=== PATIENT | female | born 1975 | race Caucasian/White ===

== ENCOUNTER 2017-04-05 21:41 | Emergency (ER) | payer BC, OTHER ==
--- NOTE | 2017-04-05 22:05 | EDM.PDOC ---
ED HPI GENERAL MEDICAL PROBLEM - General Chief Complaint: ENT Problem Stated Complaint: PT HAS SORE THROAT Time Seen by Provider: 04/05/17 21:57 - History of Present Illness INITIAL COMMENTS - FREE TEXT/NARRATIVE: HISTORY AND PHYSICAL: History of present illness: 41-year-old white female sensory concern of sore throat she denies fever chills nausea vomiting or other complaints Review of systems: As per history of present illness and below otherwise all systems reviewed and negative. Past medical history: As per history of present illness and as reviewed below otherwise noncontributory. Surgical history: As per history of present illness and as reviewed below otherwise noncontributory. Social history: No reported history of drug or alcohol abuse. Family history: As per history of present illness and as reviewed below otherwise noncontributory. Physical exam: HEENT: Atraumatic, normocephalic, pupils reactive, negative for conjunctival pallor or scleral icterus, mucous membranes moist, throat injected with 2+ tonsils no peritonsillar fullness uvular deviation trismus or hot potato voice neck supple, nontender, trachea midline. Lungs: Clear to auscultation, breath sounds equal bilaterally, chest nontender. Heart: S1S2, regular, negative for clicks, rubs, or JVD. Abdomen: Soft, nondistended, nontender. Negative for masses or hepatosplenomegaly. Negative for costovertebral tenderness. Pelvis: Stable nontender. Genitourinary: Deferred. Rectal: Deferred. Extremities: Atraumatic, negative for cords or calf pain. Neurovascular unremarkable. Neuro: Awake, alert, oriented. Cranial nerves II through XII unremarkable. Cerebellum unremarkable. Motor and sensory unremarkable throughout. Exam nonfocal. Diagnostics: None Therapeutics: None Impression: #1 pharyngitis Definitive disposition and diagnosis as appropriate pending reevaluation and review of above. 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: Other OB/BYN History: cervial cotarization Musculoskeletal History: Reports: None Neurological History: Reports: None Psychiatric History: Reports: None Endocrine/Metabolic History: Reports: None Hematologic History: Reports: None Immunologic History: Reports: None Oncologic (Cancer) History: Reports: None Dermatologic History: Reports: None - Infectious Disease History Infectious Disease History: Reports: None - Past Surgical History Head Surgeries/Procedures: Reports: None HEENT Surgical History: Reports: None GI Surgical History: Reports: Bariatric Procedure, Cholecystectomy Female Surgical History: Reports: Dilitation & Evacuation Dermatological Surgical History: Reports: None Social & Family History - Family History Family Medical History: Noncontributory - Tobacco Use Smoking Status *Q: Never Smoker Second Hand Smoke Exposure: No - Caffeine Use Caffeine Use: Reports: Soda - Recreational Drug Use Recreational Drug Use: No ED ROS GENERAL - Review of Systems Review Of Systems: ROS reveals no pertinent complaints other than HPI. ED EXAM, GENERAL - Physical Exam Exam: See Below (See dictation) Course - Vital Signs Last Recorded V/S: Last Vital Signs Temp 37.0 C 04/05/17 21:57 Pulse 120 H 04/05/17 21:57 Resp 18 04/05/17 21:57 BP 113/83 04/05/17 21:57 Pulse Ox 95 04/05/17 21:57 Departure - Departure Time of Disposition: 22:05 Disposition: Home, Self-Care 01 Condition: Good Clinical Impression: Pharyngitis - Discharge Information Referrals: PCP,None [Primary Care Provider] - Additional Instructions: The following information is given to patients seen in the emergency department who are being discharged to home. This information is to outline your options for follow-up care. We provide all patients seen in our emergency department with a follow-up referral. The need for follow-up, as well as the timing and circumstances, are variable depending upon the specifics of your emergency department visit. If you don't have a primary care physician on staff, we will provide you with a referral. We always advise you to contact your personal physician following an emergency department visit to inform them of the circumstance of the visit and for follow-up with them and/or the need for any referrals to a consulting specialist. The emergency department will also refer you to a specialist when appropriate. This referral assures that you have the opportunity for followup care with a specialist. All of these measure are taken in an effort to provide you with optimal care, which includes your followup. Under all circumstances we always encourage you to contact your private physician who remains a resource for coordinating your care. When calling for followup care, please make the office aware that this follow-up is from your recent emergency room visit. If for any reason you are refused follow-up, please contact the [facility] emergency department at and asked to speak to the emergency department charge nurse. Augmentin as prescribed push fluids Motrin/Tylenol as directed and return as needed as discussed all medical doctor as needed as discussed
[2017-04-05 22:23] VITALS: BP 115/87
== END 2017-04-05 22:25 | disposition home or self-care (01) ==
LOC: MW.ED 21:41
DX: J02.9 Acute pharyngitis, unspecified (principal); E78.00 Pure hypercholesterolemia, unspecified; Z88.5 Allergy status to narcotic agent
CPT/HCPCS: 99283

== ENCOUNTER 2018-11-20 07:39 | Day surgery (SDC) | payer OTHER ==
[~2018-11-20 07:39] MED LIST: Glycopyrrolate 0.2 MG/ML SDV ONE; Ketorolac 30 MG/ML SDV ONE; Lidocaine 2% 5 ML SDV ONE; Midazolam 1 MG/ML 2 ML SDV ONE; Neostigmine Methylsulfate 1 MG/ML 5 ML Syringe ONE; Ondansetron 4 MG/2 ML SDV ONE; Propofol 200 MG/20 ML SDV ONE; Rocuronium 100 MG/10 ML Syringe ONE; Sodium Chloride 0.9% 10 ML SDV IV PRN; Sodium Chloride 0.9% 10 ML Syringe FLUSH PRN; Sodium Chloride 0.9% 2.5 ML Syringe FLUSH PRN; Sodium Chloride 0.9% 20 ML ONE; ceFAZolin 1 GM Vial ONE; ceFAZolin 2 GM in Premix Bag 1 BAG IV ONE; fentaNYL 100 MCG/2 ML SDV ONE; fentaNYL 250 MCG/5 ML SDV ONE
[2018-11-20] MEDS: Lactated Ringers 1,000 ML IV SCH ×2 (08:00→13:24)
[2018-11-20] MEDS ORDERED: Fluorescein 5 ML Vial ONE (08:50)
[2018-11-20] MEDS ORDERED: Scopolamine 1.5 MG Transdermal Patch TRDERM PRN (08:54)
[2018-11-20] MEDS ORDERED: Scopolamine 1.5 MG Transdermal Patch ONE (08:55)
--- NOTE | 2018-11-20 08:57 | PCM.PREANE ---
Preanesthetic Assessment - Anesthesia/Transfusion/Family Hx Anesthesia History: Prior Anesthesia Without Reaction Family History of Anesthesia Reaction: No Transfusion History: Prior Transfusion Without Reaction Intubation History: Unknown - Review of Systems General: No Symptoms Pulmonary: No Symptoms Cardiovascular: No Symptoms Gastrointestinal: No Symptoms Neurological: No Symptoms Other: Reports: None - Physical Assessment NPO Status Date: 11/19/18 NPO Status Time: 23:00 Vital Signs: Last Vital Signs Temp 36.2 C 11/20/18 08:00 Pulse 72 11/20/18 08:00 Resp 18 11/20/18 08:00 BP 116/75 11/20/18 08:00 Pulse Ox 96 11/20/18 08:00 Height: 5 ft 3 in Weight: 96.615 kg ASA Class: 2 Mental Status: Alert & Oriented x3 Airway Class: Mallampati = 2 Dentition: Reports: Normal Dentition, Bridge (rt.lower (back)) Thyro-Mental Finger Breadths: 3 Mouth Opening Finger Breadths: 3 ROM/Head Extension: Full Lungs: Clear to Auscultation, Normal Respiratory Effort Cardiovascular: Regular Rate, Regular Rhythm - Lab Values: Laboratory Last Values WBC 8.44 K/uL (4.0-11.0) 11/19/18 09:11 RBC 4.69 M/uL (4.30-5.90) 11/19/18 09:11 Hgb 13.6 g/dL (12.0-16.0) 11/19/18 09:11 Hct 41.6 % (36.0-46.0) 11/19/18 09:11 MCV 88.7 fL (80.0-98.0) 11/19/18 09:11 MCH 29.0 pg (27.0-32.0) 11/19/18 09:11 MCHC 32.7 g/dL (31.0-37.0) 11/19/18 09:11 RDW Std Deviation 39.2 fl (28.0-62.0) 11/19/18 09:11 RDW Coeff of Tom 12 % (11.0-15.0) 11/19/18 09:11 Plt Count 350 K/uL (150-400) 11/19/18 09:11 MPV 10.00 fL (7.40-12.00) 11/19/18 09:11 Nucleated RBC % 0.0 /100WBC 11/19/18 09:11 Nucleated RBCs # 0 K/uL 11/19/18 09:11 HCG, Qual NEGATIVE (NEG) 11/19/18 09:11 Blood Type AB POSITIVE 11/19/18 09:11 Antibody Screen NEGATIVE 11/19/18 09:11 - Allergies Allergies/Adverse Reactions: Allergies Allergy/AdvReac Type Severity Reaction Status Date / Time hydrocodone Allergy Nausea Verified 11/14/18 09:56 - Blood Blood Available: No - Anesthesia Plan Pre-Op Medication Ordered: None - Acknowledgements Anesthesia Type Planned: General Anesthesia Pt an Appropriate Candidate for the Planned Anesthesia: Yes Alternatives and Risks of Anesthesia Discussed w Pt/Guardian: Yes Pt/Guardian Understands and Agrees with Anesthesia Plan: Yes PreAnesthesia Questionnaire HEENT History: Reports: None Cardiovascular History: Reports: High Cholesterol Respiratory History: Reports: COPD, Other (See Below) Other Respiratory History: mild COPD, seldom uses inhaler Gastrointestinal History: Reports: Other (See Below) Other Gastrointestinal History: occasional heartburn Genitourinary History: Reports: Urinary Incontinence SUTURE WINDER HAND History: Reports: Polycystic Ovaries, , Other (See Below) Other OB/BYN History: hx toxemia Musculoskeletal History: Reports: None Neurological History: Reports: Migraines Psychiatric History: Reports: Anxiety, Depression Endocrine/Metabolic History: Reports: Obesity/BMI 30+ Hematologic History: Reports: Blood Transfusion(s) Other Hematologic History: blood transfusion after vaginal delivery Immunologic History: Reports: None Oncologic (Cancer) History: Reports: None Dermatologic History: Reports: None - Infectious Disease History Infectious Disease History: Reports: Chicken Pox - Past Surgical History Head Surgeries/Procedures: Reports: None HEENT Surgical History: Reports: None Cardiovascular Surgical History: Reports: None Respiratory Surgical History: Reports: None GI Surgical History: Reports: Cholecystectomy, Other (See Below) Other GI Surgeries/Procedures: tummy tuck Female Surgical History: Reports: Cervical Cryotherapy, Dilitation & Evacuation, Endometrial Ablation Endocrine Surgical History: Reports: None Neurological Surgical History: Reports: None Musculoskeletal Surgical History: Reports: None Oncologic Surgical History: Reports: None Dermatological Surgical History: Reports: Plastic Surgical Reconstruction/Repair - SUBSTANCE USE Smoking Status *Q: Former Smoker Tobacco Use Within Last Twelve Months: Other (See Below) - HOME MEDS Home Medications: Home Meds Albuterol Sulfate [Albuterol Sulfate Hfa] 1 - 2 puff INH ASDIRECTED PRN [History] Ibuprofen [Advil] 2 tab PO ASDIRECTED PRN 11/18/18 [History] - CURRENT (IN HOUSE) MEDS Current Meds: Current Medications Lactated Ringer's (Ringers, Lactated) 1,000 mls @ 125 mls/hr IV ASDIRECTED ABDIRASHID Last Admin: 11/20/18 08:00 Dose: 125 mls/hr Sodium Chloride (Saline Flush) 10 ml FLUSH ASDIRECTED PRN PRN Reason: Keep Vein Open Sodium Chloride (Saline Flush) 2.5 ml FLUSH ASDIRECTED PRN PRN Reason: Keep Vein Open Sodium Chloride (Normal Saline) 10 ml IV ASDIRECTED PRN PRN Reason: IV Use Discontinued Medications Cefazolin Sodium (Ancef) Confirm Administered Dose 2 gm .ROUTE .STK-MED ONE Stop: 11/20/18 06:58 Fentanyl (Sublimaze) Confirm Administered Dose 100 mcg .ROUTE .STK-MED ONE Stop: 11/20/18 06:59 Fentanyl (Sublimaze) Confirm Administered Dose 250 mcg .ROUTE .STK-MED ONE Stop: 11/20/18 06:59 Fluorescein Sodium (Ak-Fluor) Confirm Administered Dose 5 ml .ROUTE .STK-MED ONE Stop: 11/20/18 08:51 Glycopyrrolate (Robinul) Confirm Administered Dose 0.8 mg .ROUTE .STK-MED ONE Stop: 11/20/18 06:57 Cefazolin Sodium/Dextrose 2 gm (/ Premix) 50 mls @ 100 mls/hr IV ONETIME ONE Stop: 11/19/18 09:17 Sodium Chloride (Normal Saline) Confirm Administered Dose 20 mls @ as directed .ROUTE .STK-MED ONE Stop: 11/20/18 06:58 Ketorolac Tromethamine (Toradol) Confirm Administered Dose 30 mg .ROUTE .STK- MED ONE Stop: 11/20/18 06:57 Lidocaine (Xylocaine-Mpf 2%) Confirm Administered Dose 5 ml .ROUTE .STK-MED ONE Stop: 11/20/18 06:57 Midazolam HCl (Versed 1 Mg/Ml) Confirm Administered Dose 2 mg .ROUTE .STK-MED ONE Stop: 11/20/18 06:59 Neostigmine Methylsulfate (Neostigmine) Confirm Administered Dose 5 mg .ROUTE .STK-MED ONE Stop: 11/20/18 06:57 Ondansetron HCl (Zofran) Confirm Administered Dose 4 mg .ROUTE .STK-MED ONE Stop: 11/20/18 06:57 Propofol (Diprivan 20 Ml) Confirm Administered Dose 200 mg .ROUTE .STK-MED ONE Stop: 11/20/18 06:59 Rocuronium [place] (Zemuron) Confirm Administered Dose 100 mg .ROUTE .STK-MED ONE Stop: 11/20/18 06:57
[2018-11-20] MEDS ORDERED: fentaNYL 250 MCG/5 ML SDV ONE ×2 (10:00→10:25)
[2018-11-20] MEDS ORDERED: Ketorolac 30 MG/ML SDV IVPUSH PRN (11:11)
[2018-11-20] MEDS ORDERED: Morphine 4 MG/ML Syringe IVPUSH PRN (11:11)
[2018-11-20] MEDS ORDERED: Acetaminophen/oxyCODONE 325-5 MG Tab PO PRN (11:11)
[2018-11-20] MEDS ORDERED: Ondansetron 4 MG/2 ML SDV IVPUSH PRN (11:11)
[2018-11-20] MEDS ORDERED: Ketorolac 30 MG/ML SDV IVPUSH ONE (11:11)
[2018-11-20] MEDS ORDERED: Promethazine 25 MG/ML SDV IM PRN (11:11)
--- NOTE | 2018-11-20 11:16 | PCM.OPNOTE ---
- General Post-Op/Procedure Note Date of Surgery/Procedure: 11/20/18 Operative Procedure(s): TVH,TVT,Cystoscopy. Pre Op Diagnosis: bleeding RADHA Post-Op Diagnosis: Same Anesthesia Technique: General ET Tube Primary Surgeon: Sorin Park EBL in mLs: 150 Complications: None Condition: Good
[2018-11-20] MEDS ORDERED: Acetaminophen 1,000 MG in Premix Bag 1 BAG IV PRN (11:25)
[2018-11-20] MEDS ORDERED: fentaNYL 100 MCG/2 ML SDV ONE (11:26)
[2018-11-20] MEDS: fentaNYL 100 MCG/2 ML SDV IVPUSH PRN ×3 (11:32→12:23)
[2018-11-20] MEDS ORDERED: Midazolam 1 MG/ML 2 ML SDV ONE (11:38)
[2018-11-20] MEDS: Midazolam 1 MG/ML 2 ML SDV IVPUSH ONE ×2 (11:45→11:55)
--- NOTE | 2018-11-20 12:35 | OR ---
SURGEON: Sorin Park MD DATE OF PROCEDURE: 11/20/2018 PREOPERATIVE DIAGNOSES: 1. Menometrorrhagia. 2. Pelvic pain. 3. Stress urinary incontinence. POSTOPERATIVE DIAGNOSES: 1. Menometrorrhagia. 2. Pelvic pain. 3. Stress urinary incontinence. OPERATION PERFORMED: Total vaginal hysterectomy, bilateral salpingectomy, left oophorectomy, TVT, and cystoscopy. PRIMARY SURGEON: Sorin Park MD. MACHINE MAINTENANCE REPAIRER: OR tech. ANESTHESIA: General endotracheal intubation. ESTIMATED BLOOD LOSS: 150 mL. COMPLICATIONS: None. INDICATION FOR SURGERY: This patient had status post ablation. She has continuous menometrorrhagia and she has stress urinary incontinence. PROCEDURE IN DETAIL: The patient was brought to the OR, properly identified, and after adequate level of anesthesia, the patient was placed in lithotomy position, prepped and draped in sterile fashion as usual. A short weighted speculum was placed in the vagina and then straight catheter was used to empty the bladder. Single-tooth tenaculum applied to the cervix. Circular incision in the vaginal mucosa around the cervix was done and the posterior cul-de-sac was entered posteriorly with the Reyez scissors. The peritoneum and the vagina tagged with 2-0 Vicryl and held for further identification. The short weighted speculum was placed with extended long weighted speculum. The uterosacral ligament was identified from both sides, clamped with a curved Zeppelin, transected and suture ligated with 2- 0 Vicryl pop-off from both sides, and held for further identification. The same thing was done with the cardinal ligament and the cervical vesicle space entered anteriorly. The broad ligament was clamped from both sides with a curved Zeppelin, transected, and suture ligated with 2-0 Vicryl pop-off. The uterine vessel suture ligated at this step, then multiple bites on. Then, the round ligament on both sides was done in the same way. Then, the uterus was delivered posteriorly. The superior pedicle was clamped. The left tube and ovary are adherent tightly to the uterus, so that is necessitating removal of the left ovary. The right ovary essentially is normal, was left alone, and the right tube is included with the specimen. After time, the superior pedicle first with Endoloop and then a free tie on both sides. Inspection of the operative field shows no oozing, no bleeding. Then, the vaginal cuff was closed with 2-0 Vicryl interrupted [id number] suture. The 2 anchor sutures incorporated the uterosacral and cardinal ligament for further vaginal support. After closing the vagina, attention was paid to the anterior vaginal wall and the area beneath the urethra infiltrated with copious amount of normal saline incised at the midline with electrocautery, and dissected laterally creating a tunnel for the Solyx TVT. The Solyx TVT was placed in place with due amount of tension to elevate the urethrovesical angle and then the vaginal cuff. Anterior vagina closed with 2-0 Vicryl continuous interlocking suture for hemostasis. While we were doing that, we asked Anesthesia to give the patient fluorescein and after finishing with closing the incision for the TVT, cystoscopy performed. The bladder was intact. Both ureteric orifices were seen with the dye coming from both of them. Thus, the patency of both ureters verified. Satisfied with these findings, the instrument and sponge count were correct. The patient tolerated the procedure well, went to recovery room in stable general condition. LIZET TELLEZ /[id number]
--- NOTE | 2018-11-20 12:56 | PCM.POSTAN ---
POST ANESTHESIA ASSESSMENT - MENTAL STATUS Mental Status: Alert, Oriented - VITAL SIGNS Vital Signs: Last Vital Signs Temp 98.0 C H 11/20/18 11:17 Pulse 52 L 11/20/18 12:30 Resp 12 11/20/18 12:30 BP 125/53 L 11/20/18 12:30 Pulse Ox 97 11/20/18 12:30 - RESPIRATORY Respiratory Status: Respiratory Rate WNL, Airway Patent, O2 Saturation Stable - CARDIOVASCULAR CV Status: Pulse Rate WNL, Blood Pressure Stable - GASTROINTESTINAL GI Status: No Symptoms - PAIN Pain Score: 0 - POST OP HYDRATION Hydration Status: Adequate & Stable - OBSERVATIONS Free Text/Narrative:: no anesthesia problems
[2018-11-20] MEDS: Acetaminophen/oxyCODONE 325-5 MG Tab PO PRN ×2 (16:11→21:15)
[2018-11-21] MEDS: Acetaminophen/oxyCODONE 325-5 MG Tab PO PRN ×2 (03:30→07:45)
[2018-11-21 07:47] LABS: BLOOD UREA NITROGEN,BUN 10 mg/dL (7.0-18.0); CARBON DIOXIDE,CO2 29.7 mmol/L (21.0-32.0); CHLORIDE,CL 103 mmol/L (98-107); GLUCOSE RANDOM 100 mg/dL (74-106); POTASSIUM,K 4.3 mmol/L (3.5-5.1); SODIUM,NA 138 mmol/L (136-145)
[2018-11-21 08:03] VITALS: BP 80/52
--- NOTE | 2018-11-21 09:37 | PCM.SURGPN ---
- General Info Date of Service: 11/21/18 POD#: 1 Functional Status: Reports: Pain Controlled - Review of Systems General: Reports: No Symptoms HEENT: Reports: No Symptoms Pulmonary: Reports: No Symptoms Cardiovascular: Reports: No Symptoms Gastrointestinal: Reports: No Symptoms Genitourinary: Reports: No Symptoms Musculoskeletal: Reports: No Symptoms Skin: Reports: No Symptoms Neurological: Reports: No Symptoms Psychiatric: Reports: No Symptoms - Patient Data Vitals - Most Recent: Last Vital Signs Temp 36.9 C 11/21/18 08:02 Pulse 65 11/21/18 08:02 Resp 20 11/21/18 08:02 BP 80/52 L 11/21/18 08:02 Pulse Ox 95 11/21/18 08:02 Weight - Most Recent: 96.615 kg I&O - Last 24 Hours: Intake & Output 11/20/18 11/21/18 11/21/18 22:59 06:59 14:59 Intake Total 1458 700 Output Total 0 800 Balance 1458 -100 Lab Results Last 24 Hrs: Laboratory Results - last 24 hr 11/21/18 11/21/18 Range/Units 06:34 06:34 WBC 8.97 (4.0-11.0) K/uL RBC 4.01 L (4.30-5.90) M/uL Hgb 11.5 L (12.0-16.0) g/dL Hct 36.2 (36.0-46.0) % MCV 90.3 (80.0-98.0) fL MCH 28.7 (27.0-32.0) pg MCHC 31.8 (31.0-37.0) g/dL RDW Std Deviation 41.1 (28.0-62.0) fl RDW Coeff of Tom 12 (11.0-15.0) % Plt Count 291 (150-400) K/uL MPV 9.80 (7.40-12.00) fL Neut % (Auto) 52.6 (48.0-80.0) % Lymph % (Auto) 35.1 (16.0-40.0) % [place] % (Auto) 9.4 (0.0-15.0) % Eos % (Auto) 2.2 (0.0-7.0) % Baso % (Auto) 0.7 (0.0-1.5) % Neut # (Auto) 4.7 (1.4-5.7) K/uL Lymph # (Auto) 3.2 H (0.6-2.4) K/uL [place] # (Auto) 0.8 (0.0-0.8) K/uL Eos # (Auto) 0.2 (0.0-0.7) K/uL Baso # (Auto) 0.1 (0.0-0.1) K/uL Nucleated RBC % 0.0 /100WBC Nucleated RBCs # 0 K/uL Sodium 138 (136-145) mmol/L Potassium 4.3 (3.5-5.1) mmol/L Chloride 103 (98-107) mmol/L Carbon Dioxide 29.7 (21.0-32.0) mmol/L BUN 10 (7.0-18.0) mg/dL Creatinine 0.8 (0.6-1.0) mg/dL Est Cr Clr Drug Dosing 75.01 mL/min Estimated GFR (MDRD) > 60.0 ml/min Glucose 100 (74-106) mg/dL Calcium 8.9 (8.5-10.1) mg/dL Med Orders - Current: Current Medications Lactated Ringer's (Ringers, Lactated) 1,000 mls @ 125 mls/hr IV ASDIRECTED [facility] Last Admin: 11/20/18 13:24 Dose: 125 mls/hr Ketorolac Tromethamine (Toradol) 30 mg IVPUSH Q6H PRN PRN Reason: Pain (severe 7-10) Stop: 11/25/18 11:12 Morphine Sulfate (Morphine) 4 mg IVPUSH Q2H PRN PRN Reason: Pain (severe 7-10) Last Admin: 11/20/18 13:22 Dose: 4 mg Ondansetron HCl (Zofran) 4 mg IVPUSH Q6H PRN PRN Reason: Nausea/Vomiting Oxycodone/Acetaminophen (Percocet 325-5 Mg) 1 tab PO Q4H PRN PRN Reason: Pain (moderate 4-6) Oxycodone/Acetaminophen (Percocet 325-5 Mg) 2 tab PO Q4H PRN PRN Reason: Pain (moderate 4-6) Last Admin: 11/21/18 07:45 Dose: 2 tab Promethazine HCl (Phenergan) 25 mg IM Q6H PRN PRN Reason: Nausea/Vomiting Scopolamine (Transderm-Scop) 1.5 mg TRDERM Q72H PRN PRN Reason: Nausea Last Admin: 11/20/18 08:57 Dose: 1.5 mg Sodium Chloride (Saline Flush) 10 ml FLUSH ASDIRECTED PRN PRN Reason: Keep Vein Open Sodium Chloride (Saline Flush) 2.5 ml FLUSH ASDIRECTED PRN PRN Reason: Keep Vein Open Sodium Chloride (Normal Saline) 10 ml IV ASDIRECTED PRN PRN Reason: IV Use Discontinued Medications Cefazolin Sodium (Ancef) Confirm Administered Dose 2 gm .ROUTE .STK-MED ONE Stop: 11/20/18 06:58 Fentanyl (Sublimaze) Confirm Administered Dose 100 mcg .ROUTE .STK-MED ONE Stop: 11/20/18 06:59 Fentanyl (Sublimaze) Confirm Administered Dose 250 mcg .ROUTE .STK-MED ONE Stop: 11/20/18 06:59 Fentanyl (Sublimaze) Confirm Administered Dose 250 mcg .ROUTE .STK-MED ONE Stop: 11/20/18 10:01 Fentanyl (Sublimaze) Confirm Administered Dose 250 mcg .ROUTE .STK-MED ONE Stop: 11/20/18 10:26 Fentanyl (Sublimaze) 50 mcg IVPUSH Q5M PRN PRN Reason: Pain Last Admin: 11/20/18 12:23 Dose: 50 mcg Fentanyl (Sublimaze) Confirm Administered Dose 100 mcg .ROUTE .STK-MED ONE Stop: 11/20/18 11:27 Last Admin: 11/20/18 11:38 Dose: 50 mcg Fluorescein Sodium (Ak-Fluor) Confirm Administered Dose 5 ml .ROUTE .STK-MED ONE Stop: 11/20/18 08:51 Glycopyrrolate (Robinul) Confirm Administered Dose 0.8 mg .ROUTE .STK-MED ONE Stop: 11/20/18 06:57 Cefazolin Sodium/Dextrose 2 gm (/ Premix) 50 mls @ 100 mls/hr IV ONETIME ONE Stop: 11/19/18 09:17 Last Admin: 11/20/18 13:07 Dose: Not Given Sodium Chloride (Normal Saline) Confirm Administered Dose 20 mls @ as directed .ROUTE .STK-MED ONE Stop: 11/20/18 06:58 Acetaminophen 1,000 mg/ Premix 100 mls @ 400 mls/hr IV Q6H PRN PRN Reason: Pain Last Admin: 11/20/18 11:31 Dose: 400 mls/hr Acetaminophen (Ofirmev) Confirm Administered Dose 100 mls @ as directed IV .STK- MED ONE Stop: 11/20/18 11:25 Ketorolac Tromethamine (Toradol) Confirm Administered Dose 30 mg .ROUTE .STK- MED ONE Stop: 11/20/18 06:57 Ketorolac Tromethamine (Toradol) 30 mg IVPUSH ONETIME ONE Stop: 11/20/18 11:12 Last Admin: 11/20/18 13:11 Dose: Not Given Lidocaine (Xylocaine-Mpf 2%) Confirm Administered Dose 5 ml .ROUTE .STK-MED ONE Stop: 11/20/18 06:57 Midazolam HCl (Versed 1 Mg/Ml) Confirm Administered Dose 2 mg .ROUTE .ST-MED ONE Stop: 11/20/18 06:59 Midazolam HCl (Versed 1 Mg/Ml) 2 mg IVPUSH ONETIME ONE Stop: 11/20/18 11:39 Last Admin: 11/20/18 11:55 Dose: 1 mg Midazolam HCl (Versed 1 Mg/Ml) Confirm Administered Dose 2 mg .ROUTE .STK-MED ONE Stop: 11/20/18 11:39 Last Admin: 11/20/18 13:07 Dose: Not Given Neostigmine Methylsulfate (Neostigmine) Confirm Administered Dose 5 mg .ROUTE .STK-MED ONE Stop: 11/20/18 06:57 Ondansetron HCl (Zofran) Confirm Administered Dose 4 mg .ROUTE .STK-MED ONE Stop: 11/20/18 06:57 Propofol (Diprivan 20 Ml) Confirm Administered Dose 200 mg .ROUTE .STK-MED ONE Stop: 11/20/18 06:59 Rocuronium [place] (Zemuron) Confirm Administered Dose 100 mg .ROUTE .STK-MED ONE Stop: 11/20/18 06:57 Scopolamine (Transderm-Scop) Confirm Administered Dose 1.5 mg .ROUTE .STK-MED ONE Stop: 11/20/18 08:56 Last Admin: 11/20/18 13:07 Dose: Not Given - Exam Wound/Incisions: Healing Well General: Alert, Oriented HEENT: Pupils Equal Neck: Supple Lungs: Clear to Auscultation, Normal Respiratory Effort Cardiovascular: Regular Rate, Regular Rhythm GI/Abdominal Exam: Normal Bowel Sounds, Soft, Non-Tender, No Organomegaly, No Distention, No Abnormal Bruit, No Mass, Pelvis Stable Extremities: Normal Inspection, Normal Range of Motion, Non-Tender, No Pedal Edema, Normal Capillary Refill Skin: Warm, Dry, Intact Neurological: No New Focal Deficit Psy/Mental Status: Alert, Normal Affect, Normal Mood - Problem List Review Problem List Initiated/Reviewed/Updated: Yes - My Orders Last 24 Hours: Active Orders 24 hr Category Date Time Status Patient Status [ADT] Routine ADT 11/20/18 11:12 Active Antiembolic Devices [RC] PER UNIT ROUTINE Care 11/20/18 11:12 Active Notify Provider Vital Signs [RC] ASDIRECTED Care 11/20/18 11:12 Active Oxygen Therapy [RC] ASDIRECTED Care 11/20/18 11:12 Active RT Incentive Spirometry [RC] Q2HWA Care 11/20/18 11:12 Active Up With Assistance [RC] PER UNIT ROUTINE Care 11/20/18 11:12 Active Up ad [place] [RC] PER UNIT ROUTINE Care 11/20/18 11:12 Active Regular Diet [DIET] Diet 11/20/18 Dinner Active Acetaminophen/oxyCODONE [Percocet 325-5 MG] Med 11/20/18 11:11 Active 1 tab PO Q4H PRN Acetaminophen/oxyCODONE [Percocet 325-5 MG] Med 11/20/18 11:11 Active 2 tab PO Q4H PRN Ketorolac [Toradol] Med 11/20/18 11:11 Active 30 mg IVPUSH Q6H PRN Morphine Med 11/20/18 11:11 Active 4 mg IVPUSH Q2H PRN Ondansetron [Zofran] Med 11/20/18 11:11 Active 4 mg IVPUSH Q6H PRN Promethazine [Phenergan] Med 11/20/18 11:11 Active 25 mg IM Q6H PRN Scopolamine [Transderm-Scop] Med 11/20/18 08:54 Active 1.5 mg TRDERM Q72H PRN Peripheral IV Discontinue [OM.PC] Routine Oth 11/20/18 11:12 Ordered Sequential Compression Device [OM.PC] Per Unit Routine Oth 11/20/18 11:12 Ordered Resuscitation Status Routine Resus Stat 11/20/18 11:11 Ordered Medication Orders Lactated Ringer's (Ringers, Lactated) 1,000 mls @ 125 mls/hr IV ASDIRECTED ABDIRASHID Last Admin: 11/20/18 13:24 Dose: 125 mls/hr Infusion: 11/20/18 13:24 Dose: 125 mls/hr Admin: 11/20/18 08:00 Dose: 125 mls/hr Ketorolac Tromethamine (Toradol) 30 mg IVPUSH Q6H PRN PRN Reason: Pain (severe 7-10) Stop: 11/25/18 11:12 Morphine Sulfate (Morphine) 4 mg IVPUSH Q2H PRN PRN Reason: Pain (severe 7-10) Last Admin: 11/20/18 13:22 Dose: 4 mg Ondansetron HCl (Zofran) 4 mg IVPUSH Q6H PRN PRN Reason: Nausea/Vomiting Oxycodone/Acetaminophen (Percocet 325-5 Mg) 1 tab PO Q4H PRN PRN Reason: Pain (moderate 4-6) Oxycodone/Acetaminophen (Percocet 325-5 Mg) 2 tab PO Q4H PRN PRN Reason: Pain (moderate 4-6) Last Admin: 11/21/18 07:45 Dose: 2 tab Admin: 11/21/18 03:30 Dose: 2 tab Admin: 11/20/18 21:15 Dose: 2 tab Admin: 11/20/18 16:11 Dose: 2 tab Promethazine HCl (Phenergan) 25 mg IM Q6H PRN PRN Reason: Nausea/Vomiting Scopolamine (Transderm-Scop) 1.5 mg TRDERM Q72H PRN PRN Reason: Nausea Last Admin: 11/20/18 08:57 Dose: 1.5 mg Sodium Chloride (Saline Flush) 10 ml FLUSH ASDIRECTED PRN PRN Reason: Keep Vein Open Sodium Chloride (Saline Flush) 2.5 ml FLUSH ASDIRECTED PRN PRN Reason: Keep Vein Open Sodium Chloride (Normal Saline) 10 ml IV ASDIRECTED PRN PRN Reason: IV Use - Assessment Assessment (Free Text/Narrative):: Status post vaginal hysterectomy DVT postoperative day #1 patient is doing well. - Plan Plan (Free Text/Narrative):: The postvasectomy instruction is given to the patient the patient she would be discharged today a prescription for Narco 5 the every 4 hours when necessary for pain is given to the patient and she have an appointment to come to the office in one week
--- NOTE | 2018-11-21 10:54 | PCM48HPAN ---
Post Anesthesia Note - EVALUATION WITHIN 48HRS OF ANESTHETIC Vital Signs in Normal Range: Yes Patient Participated in Evaluation: Yes Respiratory Function Stable: Yes Airway Patent: Yes Cardiovascular Function Stable: Yes Hydration Status Stable: Yes Pain Control Satisfactory: Yes Nausea and Vomiting Control Satisfactory: Yes Mental Status Recovered: Yes Vital Signs: Last Vital Signs Temp 36.9 C 11/21/18 08:02 Pulse 65 11/21/18 08:02 Resp 20 11/21/18 08:02 BP 80/52 L 11/21/18 08:02 Pulse Ox 95 11/21/18 08:02 - COMMENTS/OBSERVATIONS Free Text/Narrative:: no anesthesia problems
== END 2018-11-21 11:00 | disposition home or self-care (01) ==
LOC: MW.SDS 07:39 → MW.MS 12:58 → MW.SDS 11-21 11:00
PROVIDERS: ATTEND Obstetrics & Gynecology
DX: N80.0 Endometriosis of uterus (principal); N39.3 Stress incontinence (female) (male); E78.00 Pure hypercholesterolemia, unspecified; E28.2 Polycystic ovarian syndrome; E66.9 Obesity, unspecified; J43.9 Emphysema, unspecified; F41.9 Anxiety disorder, unspecified; F41.8 Other specified anxiety disorders; Z68.38 Body mass index [BMI] 38.0-38.9, adult; Z88.5 Allergy status to narcotic agent; Z87.891 Personal history of nicotine dependence
CPT/HCPCS: 36415; 57288; 58262; 80048; 84703; 85025; 85027; 86850; 86900; 86901; A9270; C1771; J0131; J0690; J1885; J2001; J2250; J2270; J2405; J2550; J2704; J3010; J3490; J7120; 88307

== ENCOUNTER 2020-05-30 15:07 | Emergency (ER) | payer OTHER, BC ==
[2020-05-30] MEDS ORDERED: Sodium Chloride 0.9% 10 ML Syringe FLUSH PRN (15:24)
[2020-05-30] MEDS ORDERED: Sodium Chloride 0.9% 2.5 ML Syringe FLUSH PRN (15:24)
--- NOTE | 2020-05-30 15:30 | EDM.PDOC ---
ED HPI GENERAL MEDICAL PROBLEM - General Chief Complaint: Chest Pain Stated Complaint: CHEST ISSUES Time Seen by Provider: 05/30/20 15:08 - History of Present Illness INITIAL COMMENTS - FREE TEXT/NARRATIVE: History of present illness: Last night before the patient went to sleep she felt like her heart stopped for 5 seconds. She could not get her breath at all. She was frozen and stiff. Immediately after that she had a fast palpitation. Discomfort in her chest off and on since. No unusual diaphoresis although she sweats quite a bit. Since this happened she is short of breath and cannot tolerate walking up steps. Dyspnea on exertion and her pressure in her chest becomes worse with exertion. She has had occasional episodes of feeling like her heart stopped briefly and palpitations in the past. She is a non-smoker without being treated for diabetes blood pressure or cholesterol. Patient has a family history of heart disease but no history of DVT or thromboembolism. She has no recent immobilization and no swelling in her legs. [] Review of systems: As per history of present illness and below otherwise all systems reviewed and negative. Past medical history: As per history of present illness and as reviewed below otherwise noncontributory. Surgical history: As per history of present illness and as reviewed below otherwise noncontributory. Social history: No reported history of drug or alcohol abuse. Family history: As per history of present illness and as reviewed below otherwise noncontributory. Physical exam: Constitutional - well developed, well-nourished and in no acute distress HEENT - normocephalic, no evidence of trauma - external nose and mouth normal - no mass in neck and no JVD - mucosae moist EYES - full EOM, PERRL, no icterus - no evidence of inflammation, injection, or drainage Respiratory - no respiratory distress, equal bilateral expansion, lungs clear to auscultation and no abnormal lung sounds Cardiovascular - Regular Rhythm with S1 and S2 appreciated and no murmur, gallop or rub. GI - abdomen soft without distension or organomegaly - normal bowel sounds - no guard or rebound Musculoskeletal no gross deformity of long bones or joints - no tenderness, sw elling or edema Neurologic - Alert and oriented times four - CN II-XII grossly intact - motor sensory and coordination symmetrically normal Psychiatric - appropriate mood and affect with normal thought content Hematologic - No petechiae or purpura - mucosa appropriate color and sclera not pale - normal nail bed color and refill Integument - no rash or evidence of trauma - normal turgor Diagnostics: [] Therapeutics: [] Impression: [] Plan: [] Definitive disposition and diagnosis as appropriate pending reevaluation and review of above. - Related Data Allergies Allergy/AdvReac Type Severity Reaction Status Date / Time hydrocodone Allergy Nausea Verified 05/30/20 15:14 Home Meds: Home Meds . 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: Reports: Polycystic Ovaries, , Other (See Below) Other HELICOPTER ENGINEER History: hx toxemia Musculoskeletal History: Reports: None Neurological History: Reports: Migraines Psychiatric History: Reports: Anxiety, Depression Endocrine/Metabolic History: Reports: Obesity/BMI 30+ Hematologic History: Reports: Blood Transfusion(s) Other Hematologic History: blood transfusion after vaginal delivery Immunologic History: Reports: None Oncologic (Cancer) History: Reports: None Dermatologic History: Reports: None - Infectious Disease History Infectious Disease History: Reports: Chicken Pox - Past Surgical History Head Surgeries/Procedures: Reports: None HEENT Surgical History: Reports: None Cardiovascular Surgical History: Reports: None Respiratory Surgical History: Reports: None GI Surgical History: Reports: Cholecystectomy, Other (See Below) Other GI Surgeries/Procedures: tummy tuck Female Surgical History: Reports: Cervical Cryotherapy, Dilitation & Evacuation, Endometrial Ablation Endocrine Surgical History: Reports: None Neurological Surgical History: Reports: None Musculoskeletal Surgical History: Reports: None Oncologic Surgical History: Reports: None Dermatological Surgical History: Reports: Plastic Surgical Reconstruction/Repair Social & Family History - Family History Family Medical History: No Pertinent Family History - Tobacco Use Tobacco Use Status *Q: Never Tobacco User - Caffeine Use Caffeine Use: Reports: Soda - Recreational Drug Use Recreational Drug Use: No ED ROS GENERAL - Review of Systems Review Of Systems: Comprehensive ROS is negative, except as noted in HPI. ED EXAM, GENERAL - Physical Exam Exam: See Below Free Text/Narrative:: Physical exam is in the HPI #1 Interpretation EKG Interpretation Comments: EG done at 1513 hrs. sinus rhythm with a rate of 94. MD interval 152. QT interval 444. [place] -12. T wave inversion in lead V1 through 3. No prior for comparison. Impression no obvious injury but there is a possibility of anterior ischemia. Course - Vital Signs Text/Narrative:: D-dimer positive CT ordered Last Recorded V/S: Last Vital Signs Temp 35.9 C L 05/30/20 15:14 Pulse 82 05/30/20 16:07 Resp 18 05/30/20 16:07 BP 115/70 05/30/20 16:07 Pulse Ox 94 L 05/30/20 16:07 - Orders/Labs/Meds Orders: Active Orders 24 hr Category Date Time Status EKG Documentation Completion [] AM Care 05/30/20 15:24 Active Telemetry Monitoring [Cardiac Monitoring] [RC] . Care 05/30/20 15:26 Active DIRECTED Sodium Chloride 0.9% [Saline Flush] Med 05/30/20 15:24 Active 10 ml FLUSH ASDIRECTED PRN Sodium Chloride 0.9% [Saline Flush] Med 05/30/20 15:24 Active 2.5 ml FLUSH ASDIRECTED PRN Saline Lock Insert [OM.PC] Stat Oth 05/30/20 15:24 Ordered Medication Orders Sodium Chloride (Sodium Chloride 0.9% 10 Ml Syringe) 10 ml FLUSH ASDIRECTED PRN PRN Reason: Keep Vein Open Sodium Chloride (Sodium Chloride 0.9% 2.5 Ml Syringe) 2.5 ml FLUSH ASDIRECTED PRN PRN Reason: Keep Vein Open Labs: Laboratory Tests 05/30/20 05/30/20 05/30/20 Range/Units 15:13 15:13 15:13 WBC 8.70 (4.0-11.0) K/uL RBC 4.73 (4.30-5.90) M/uL Hgb 13.7 (12.0-16.0) g/dL Hct 42.1 (36.0-46.0) % MCV 89.0 (80.0-98.0) fL MCH 29.0 (27.0-32.0) pg MCHC 32.5 (31.0-37.0) g/dL RDW Std Deviation 41.4 (28.0-62.0) fl RDW Coeff of Tom 13 (11.0-15.0) % Plt Count 423 H (150-400) K/uL MPV 10.10 (7.40-12.00) fL Neut % (Auto) 43.1 L (48.0-80.0) % Lymph % (Auto) 47.6 H (16.0-40.0) % [place] % (Auto) 6.7 (0.0-15.0) % Eos % (Auto) 2.1 (0.0-7.0) % Baso % (Auto) 0.5 (0.0-1.5) % Neut # (Auto) 3.8 (1.4-5.7) K/uL Lymph # (Auto) 4.1 H (0.6-2.4) K/uL [place] # (Auto) 0.6 (0.0-0.8) K/uL Eos # (Auto) 0.2 (0.0-0.7) K/uL Baso # (Auto) 0.0 (0.0-0.1) K/uL Nucleated RBC % 0.0 /100WBC Nucleated RBCs # 0 K/uL D-Dimer, Quantitative 1.32 H (0.0-0.50) mg/L FEU Sodium 139 (136-145) mmol/L Potassium 3.9 (3.5-5.1) mmol/L Chloride 102 (98-107) mmol/L Carbon Dioxide 26.3 (21.0-32.0) mmol/L BUN 8 (7.0-18.0) mg/dL Creatinine 0.9 (0.6-1.0) mg/dL Est Cr Clr Drug Dosing 65.30 mL/min Estimated GFR (MDRD) > 60.0 ml/min Glucose 106 (74-106) mg/dL Calcium 9.4 (8.5-10.1) mg/dL Magnesium (1.8-2.4) mg/dL Total Bilirubin 0.4 (0.2-1.0) mg/dL AST 37 (15-37) IU/L ALT 49 (14-63) IU/L Alkaline Phosphatase 84 (46-116) U/L Troponin I < 0.050 (0.000-0.056) ng/mL Total Protein 7.9 (6.4-8.2) g/dL Albumin 3.2 L (3.4-5.0) g/dL Globulin 4.7 H (2.6-4.0) g/dL Albumin/Globulin Ratio 0.7 L (0.9-1.6) 05/30/20 Range/Units 15:13 WBC (4.0-11.0) K/uL RBC (4.30-5.90) M/uL Hgb (12.0-16.0) g/dL Hct (36.0-46.0) % MCV (80.0-98.0) fL MCH (27.0-32.0) pg MCHC (31.0-37.0) g/dL RDW Std Deviation (28.0-62.0) fl RDW Coeff of Otm (11.0-15.0) % Plt Count (150-400) K/uL MPV (7.40-12.00) fL Neut % (Auto) (48.0-80.0) % Lymph % (Auto) (16.0-40.0) % [place] % (Auto) (0.0-15.0) % Eos % (Auto) (0.0-7.0) % Baso % (Auto) (0.0-1.5) % Neut # (Auto) (1.4-5.7) K/uL Lymph # (Auto) (0.6-2.4) K/uL [place] # (Auto) (0.0-0.8) K/uL Eos # (Auto) (0.0-0.7) K/uL Baso # (Auto) (0.0-0.1) K/uL Nucleated RBC % /100WBC Nucleated RBCs # K/uL D-Dimer, Quantitative (0.0-0.50) mg/L FEU Sodium (136-145) mmol/L Potassium (3.5-5.1) mmol/L Chloride (98-107) mmol/L Carbon Dioxide (21.0-32.0) mmol/L BUN (7.0-18.0) mg/dL Creatinine (0.6-1.0) mg/dL Est Cr Clr Drug Dosing mL/min Estimated GFR (MDRD) ml/min Glucose (74-106) mg/dL Calcium (8.5-10.1) mg/dL Magnesium 2.0 (1.8-2.4) mg/dL Total Bilirubin (0.2-1.0) mg/dL AST (15-37) IU/L ALT (14-63) IU/L Alkaline Phosphatase (46-116) U/L Troponin I (0.000-0.056) ng/mL Total Protein (6.4-8.2) g/dL Albumin (3.4-5.0) g/dL Globulin (2.6-4.0) g/dL Albumin/Globulin Ratio (0.9-1.6) Meds: Medications Generic Name Dose Route Start Last Admin Trade Name Freq PRN Reason Stop Dose Admin Sodium Chloride 10 ml 05/30/20 15:24 Sodium Chloride 0.9% 10 Ml Syringe FLUSH ASDIRECTED PRN Keep Vein Open Sodium Chloride 2.5 ml 05/30/20 15:24 Sodium Chloride 0.9% 2.5 Ml Syringe FLUSH ASDIRECTED PRN Keep Vein Open Discontinued Medications Generic Name Dose Route Start Last Admin Trade Name Freq PRN Reason Stop Dose Admin Iopamidol 75 ml 05/30/20 16:35 05/30/20 16:37 Iopamidol 755 Mg/Ml 500 Ml Multipack Bottle IVPUSH 05/30/20 16:36 75 ml ONETIME STA Administration Departure - Departure Time of Disposition: 18:05 Disposition: Home, Self-Care 01 Condition: Good Clinical Impression: Palpitations, Atypical chest pain - Discharge Information Instructions: Nonspecific Chest Pain, Adult, [id number], Palpitations, [id number] Referrals: [facility] [employer] [Primary Care Provider] - Forms: ED Department Discharge Additional Instructions: [facility] - cardiology [address] [place] [id number] [facility] - Primary Care [address] [place] [id number] [id number] The following information is given to patients seen in the emergency department who are being discharged to home. This information is to outline your options for follow-up care. We provide all patients seen in our emergency department with a follow-up referral. The need for follow-up, as well as the timing and circumstances, are variable depending upon the specifics of your emergency department visit. If you don't have a primary care physician on staff, we will provide you with a referral. We always advise you to contact your personal physician following an emergency department visit to inform them of the circumstance of the visit and for follow-up with them and/or the need for any referrals to a consulting specialist. The emergency department will also refer you to a specialist when appropriate. This referral assures that you have the opportunity for follow-up care with a specialist. All of these measure are taken in an effort to provide you with optimal care, which includes your follow-up. Under all circumstances we always encourage you to contact your private physician who remains a resource for coordinating your care. When calling for follow-up care, please make the office aware that this follow-up is from your recent emergency room visit. If for any reason you are refused follow-up, please contact the [facility] Emergency Department at and asked to speak to the emergency department charge nurse. Sepsis Event Note (ED) - Evaluation Sepsis Screening Result: Possible Sepsis Risk - Focused Exam Vital Signs: Vital Signs Temp Pulse Resp BP Pulse Ox 05/30/20 16:07 82 18 115/70 94 L 05/30/20 15:14 35.9 C L 99 18 151/85 H 95 - My Orders Last 24 Hours: My Active Orders 05/30/20 15:24 EKG Documentation Completion [RC] AM Sodium Chloride 0.9% [Saline Flush] 10 ml FLUSH ASDIRECTED PRN Sodium Chloride 0.9% [Saline Flush] 2.5 ml FLUSH ASDIRECTED PRN Saline Lock Insert [OM.PC] Stat 05/30/20 15:26 Telemetry Monitoring [Cardiac Monitoring] [RC] . DIRECTED - Assessment/Plan Last 24 Hours: My Active Orders 05/30/20 15:24 EKG Documentation Completion [RC] AM Sodium Chloride 0.9% [Saline Flush] 10 ml FLUSH ASDIRECTED PRN Sodium Chloride 0.9% [Saline Flush] 2.5 ml FLUSH ASDIRECTED PRN Saline Lock Insert [OM.PC] Stat 05/30/20 15:26 Telemetry Monitoring [Cardiac Monitoring] [RC] . DIRECTED
[2020-05-30 15:54] LABS: BLOOD UREA NITROGEN,BUN 8 mg/dL (7.0-18.0); CARBON DIOXIDE,CO2 26.3 mmol/L (21.0-32.0); CHLORIDE,CL 102 mmol/L (98-107); GLUCOSE RANDOM 106 mg/dL (74-106); POTASSIUM,K 3.9 mmol/L (3.5-5.1); SODIUM,NA 139 mmol/L (136-145)
--- NOTE | 2020-05-30 16:21 | CR ---
Indication: Chest pain Technique: Chest 1 view Comparison: Chest x-ray 11/03/2015 Findings/Impression: Cardiovascular and mediastinum: Heart size and vasculature are normal in caliber and appearance. Lungs and pleural space: No pleural effusion or pneumothorax. Minimal right infrahilar haziness, either atelectasis or early pneumonia. Bones and soft tissues: No acute findings. Dictated by Azeem Israel MD @ May 30 2020 4:19PM Signed by Dr. Azeem Israel @ May 30 2020 4:20PM
[2020-05-30] MEDS ORDERED: Iopamidol 755 MG/ML 500 ML Multipack Bottle IVPUSH STA (16:35)
--- NOTE | 2020-05-30 17:56 | CT ---
INDICATION: Shortness of breath. Chest pain. Elevated D-dimer. COMPARISON: Chest radiograph from today. TECHNIQUE: CT examination of the chest was performed with the uneventful intravenous administration of 75 cc of Isovue 370 while 1 and 1.5 mm thick axial sections were obtained through the pulmonary arteries. Please note that all CT scans at this facility use dose modulation, iterative reconstruction, and/or weight-based dosing when appropriate to reduce radiation dose to as low as reasonably achievable. FINDINGS: : There is no sign of pulmonary embolism, with normal enhancement and branching of the pulmonary arteries. The lungs are clear with no sign of significant infiltrate or mass. There is no sign of mediastinal or hilar mass or adenopathy. The heart is normal in appearance for the patient`s age, as are the aorta and other ascending great vessels. There is no sign of supraclavicular or axillary mass or adenopathy. The visualized superior liver, spleen, pancreas, kidneys, and adrenals are normal in appearance. Clips are seen in the gall bladder fossa from cholecystectomy. The common bile duct is nondilated. The osseous structures are normal in appearance for the patient`s age. IMPRESSION: No sign of pulmonary embolism. Normal CT of the chest with contrast. Status post cholecystectomy. No sign of biliary ductal dilatation. Please note that all CT scans at this facility use dose modulation, iterative reconstruction, and/or weight-based dosing when appropriate to reduce radiation dose to as low as reasonably achievable. Dictated by Farrukh Zamorano MD @ May 30 2020 5:51PM Signed by Dr. Farrukh Zamorano @ May 30 2020 5:55PM
[2020-05-30 18:56] VITALS: BP 126/78; PULSE 67
== END 2020-05-30 18:50 | disposition home or self-care (01) ==
LOC: MW.ED 15:07
DX: R00.2 Palpitations (principal); R07.89 Other chest pain; J44.9 Chronic obstructive pulmonary disease, unspecified; E66.9 Obesity, unspecified; Z88.5 Allergy status to narcotic agent
CPT/HCPCS: 36415; 71045; 71275; 80053; 83735; 84484; 85025; 85379; 93005; 99285; Q9967; 93010; 99283

== ENCOUNTER 2020-08-18 00:15 | Emergency (ER) | payer OTHER, BC ==
[2020-08-18] MEDS ORDERED: Sodium Chloride 0.9% 10 ML Syringe FLUSH PRN (00:19)
[2020-08-18] MEDS ORDERED: Sodium Chloride 0.9% 2.5 ML Syringe FLUSH PRN (00:19)
[2020-08-18 00:54] LABS: BLOOD UREA NITROGEN,BUN 8 mg/dL (7.0-18.0); CARBON DIOXIDE,CO2 26.1 mmol/L (21.0-32.0); CHLORIDE,CL 103 mmol/L (98-107); GLUCOSE RANDOM 128 mg/dL (74-106); POTASSIUM,K 4.3 mmol/L (3.5-5.1); SODIUM,NA 137 mmol/L (136-145)
[2020-08-18] MEDS ORDERED: LORazepam 2 MG/ML SDV IVPUSH ONE (00:58)
[2020-08-18] MEDS ORDERED: Ketorolac 30 MG/ML SDV IVPUSH ONE (00:58)
--- NOTE | 2020-08-18 01:17 | EDM.PDOC ---
ED HPI GENERAL MEDICAL PROBLEM - General Chief Complaint: Chest Pain Stated Complaint: CHEST PAIN Time Seen by Provider: 08/18/20 00:19 - History of Present Illness INITIAL COMMENTS - FREE TEXT/NARRATIVE: 45-year-old female who is presenting with severe nonradiating left-sided to substernal chest pain that is pleuritic in nature and is associated with anxiety. Patient has a history of similar episodes in the past but this episode has lasted for over 30 minutes which is very unusual. Patient has no syncope or near syncope she has no abdominal pain no vomiting. Patient has been evaluated for this complaint before she is also been referred to cardiology she has been following up with Dr. Calloway in [place]. She has had an echocardiogram that she says showed "a slow closing aortic valve." No cough or fever. She has had a negative Holter monitor as well. Patient states that she [facility] she did not try any of that tonight. chest Pain Score (Numeric/FACES): 10 - Related Data Allergies Allergy/AdvReac Type Severity Reaction Status Date / Time hydrocodone Allergy Nausea Verified 08/18/20 00:22 Home Meds: Home Meds . [No Known Home Meds] 11/20/18 [History] Past Medical History HEENT History: Reports: None Cardiovascular History: Reports: High Cholesterol Respiratory History: Reports: COPD Other Respiratory History: mild COPD, seldom uses inhaler Gastrointestinal History: Reports: Gastritis Other Gastrointestinal History: occasional heartburn Genitourinary History: Reports: None, Urinary Incontinence CRATE OPENER History: Reports: Polycystic Ovaries, Other CRATE OPENER History: hx toxemia Musculoskeletal History: Reports: None Neurological History: Reports: Migraines Psychiatric History: Reports: Anxiety, Depression Endocrine/Metabolic History: Reports: Obesity/BMI 30+ Hematologic History: Reports: Blood Transfusion(s) Other Hematologic History: blood transfusion after vaginal delivery Immunologic History: Reports: None Oncologic (Cancer) History: Reports: None Dermatologic History: Reports: None - Infectious Disease History Infectious Disease History: Reports: Chicken Pox - Past Surgical History Head Surgeries/Procedures: Reports: None HEENT Surgical History: Reports: None Cardiovascular Surgical History: Reports: None Respiratory Surgical History: Reports: None GI Surgical History: Reports: Cholecystectomy, Other (See Below) Other GI Surgeries/Procedures: tummy tuck Female Surgical History: Reports: Cervical Cryotherapy, Dilitation & Evacuation, Endometrial Ablation Endocrine Surgical History: Reports: None Neurological Surgical History: Reports: None Musculoskeletal Surgical History: Reports: None Oncologic Surgical History: Reports: None Dermatological Surgical History: Reports: Plastic Surgical Reconstruction/Repair Social & Family History - Family History Family Medical History: No Pertinent Family History - Caffeine Use Caffeine Use: Reports: Soda - Recreational Drug Use Recreational Drug Use: No ED ROS GENERAL - Review of Systems Review Of Systems: See Below Free Text/Narrative/Comment: General: No fever. ENT: No sore throat. Neck: No neck stiffness. Respiratory: Per HPI Cardiac: Per HPI Gastrointestinal: No nausea, vomiting or abdominal pain. Musculoskeletal: No myalgias/arthralgias. Neurologic: No headache. ED EXAM, GENERAL - Physical Exam Exam: See Below Free Text/Narrative:: General Appearance: No acute distress, appears comfortable Skin: No rash HEENT: Normocephalic/atraumatic, sclera anicteric, mucous membranes moist Neck: Normal range of motion Chest and Lungs: Bilateral breath sounds, clear to auscultation Cardiovascular: Tachycardic rate regular rhythm intact distal perfusion Abdomen: Soft, non-tender Back: Normal Musculoskeletal: No edema or tenderness Neurologic: Awake, alert, no obvious deficits, moving all extremities Psychiatric: Appears anxious mild psychomotor agitation #1 Interpretation EKG Date: 08/18/20 Time: 00:55 EKG Interpretation Comments: Sinus rhythm rate of 90 T wave inversion V1 and V2 with T wave flattening V3 and V4 no ST elevations or depression changes are nonspecific Course - Vital Signs Last Recorded V/S: Last Vital Signs Temp 97 F 08/18/20 00:15 Pulse 96 08/18/20 00:15 Resp 18 08/18/20 00:15 BP 132/78 08/18/20 00:15 Pulse Ox 98 08/18/20 00:15 - Orders/Labs/Meds Orders: Active Orders 24 hr Category Date Time Status Sodium Chloride 0.9% [Saline Flush] Med 08/18/20 00:19 Active 10 ml FLUSH ASDIRECTED PRN Sodium Chloride 0.9% [Saline Flush] Med 08/18/20 00:19 Active 2.5 ml FLUSH ASDIRECTED PRN Saline Lock Insert [OM.PC] Stat Oth 08/18/20 00:19 Ordered Medication Orders Sodium Chloride (Sodium Chloride 0.9% 10 Ml Syringe) 10 ml FLUSH ASDIRECTED PRN PRN Reason: Keep Vein Open Sodium Chloride (Sodium Chloride 0.9% 2.5 Ml Syringe) 2.5 ml FLUSH ASDIRECTED PRN PRN Reason: Keep Vein Open Labs: Laboratory Tests 08/18/20 08/18/20 08/18/20 Range/Units 00:25 00:25 01:15 WBC 9.37 (4.0-11.0) K/uL RBC 4.64 (4.30-5.90) M/uL Hgb 13.4 (12.0-16.0) g/dL Hct 40.1 (36.0-46.0) % MCV 86.4 (80.0-98.0) fL MCH 28.9 (27.0-32.0) pg MCHC 33.4 (31.0-37.0) g/dL RDW Std Deviation 38.6 (28.0-62.0) fl RDW Coeff of Tom 12 (11.0-15.0) % Plt Count 404 H (150-400) K/uL MPV 9.90 (7.40-12.00) fL Neut % (Auto) 47.5 L (48.0-80.0) % Lymph % (Auto) 43.1 H (16.0-40.0) % [place] % (Auto) 6.9 (0.0-15.0) % Eos % (Auto) 2.2 (0.0-7.0) % Baso % (Auto) 0.3 (0.0-1.5) % Neut # (Auto) 4.4 (1.4-5.7) K/uL Lymph # (Auto) 4.0 H (0.6-2.4) K/uL [place] # (Auto) 0.7 (0.0-0.8) K/uL Eos # (Auto) 0.2 (0.0-0.7) K/uL Baso # (Auto) 0.0 (0.0-0.1) K/uL D-Dimer, Quantitative 0.41 (0.0-0.50) mg/L FEU Sodium 137 (136-145) mmol/L Potassium 4.3 (3.5-5.1) mmol/L Chloride 103 (98-107) mmol/L Carbon Dioxide 26.1 (21.0-32.0) mmol/L BUN 8 (7.0-18.0) mg/dL Creatinine 0.9 (0.6-1.0) mg/dL Est Cr Clr Drug Dosing 65.30 mL/min Estimated GFR (MDRD) > 60.0 ml/min Glucose 128 H (74-106) mg/dL Calcium 9.3 (8.5-10.1) mg/dL Total Bilirubin 0.3 (0.2-1.0) mg/dL AST 59 H (15-37) IU/L ALT 62 (14-63) IU/L Alkaline Phosphatase 87 (46-116) U/L Troponin I < 0.050 (0.000-0.056) ng/mL Total Protein 7.9 (6.4-8.2) g/dL Albumin 3.1 L (3.4-5.0) g/dL Globulin 4.8 H (2.6-4.0) g/dL Albumin/Globulin Ratio 0.7 L (0.9-1.6) Meds: Medications Generic Name Dose Route Start Last Admin Trade Name Freq PRN Reason Stop Dose Admin Sodium Chloride 10 ml 08/18/20 00:19 Sodium Chloride 0.9% 10 Ml Syringe FLUSH ASDIRECTED PRN Keep Vein Open Sodium Chloride 2.5 ml 08/18/20 00:19 Sodium Chloride 0.9% 2.5 Ml Syringe FLUSH ASDIRECTED PRN Keep Vein Open Discontinued Medications Generic Name Dose Route Start Last Admin Trade Name Freq PRN Reason Stop Dose Admin Ketorolac Tromethamine 30 mg 08/18/20 00:58 08/18/20 01:41 Ketorolac 30 Mg/Ml Sdv IVPUSH 08/18/20 00:59 30 mg ONETIME ONE Administration Lorazepam 1 mg 08/18/20 00:58 08/18/20 01:42 Lorazepam 2 Mg/Ml Sdv IVPUSH 08/18/20 00:59 1 mg ONETIME ONE Administration Departure - Departure Time of Disposition: 02:21 Disposition: Home, Self-Care 01 Condition: Good Clinical Impression: Chest pain, Panic attack - Discharge Information *PRESCRIPTION DRUG MONITORING PROGRAM REVIEWED*: Not Applicable *COPY OF PRESCRIPTION DRUG MONITORING REPORT IN PATIENT GILES: Not Applicable Instructions: Nonspecific Chest Pain, Adult, Panic Attack Forms: ED Department Discharge Additional Instructions: Your labs today were normal. Showed no signs of blood clot or acute infection chest x-ray was normal. Your screening test for blood clot was normal. Your heart enzyme was normal. Your EKG was normal for you and I do not see any evidence of a serious heart problem at this time. I cannot say for certain what caused your initial chest pain to begin. However I think the rapid heart rate the trouble breathing and the difficulty swallowing was an acute anxiety response. 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 If your symptoms worsen or you have any other new symptoms that concern you please call your doctor or return to the ER. The following information is given to patients seen in the emergency department who are being discharged to home. This information is to outline your options for follow-up care. We provide all patients seen in our emergency department with a follow-up referral. The need for follow-up, as well as the timing and circumstances, are variable depending upon the specifics of your emergency department visit. If you don't have a primary care physician on staff, we will provide you with a referral. We always advise you to contact your personal physician following an emergency department visit to inform them of the circumstance of the visit and for follow-up with them and/or the need for any referrals to a consulting specialist. The emergency department will also refer you to a specialist when appropriate. This referral assures that you have the opportunity for follow-up care with a specialist. All of these measure are taken in an effort to provide you with optimal care, which includes your follow-up. Under all circumstances we always encourage you to contact your private physician who remains a resource for coordinating your care. When calling for follow-up care, please make the office aware that this follow-up is from your recent emergency room visit. If for any reason you are refused follow-up, please contact the [facility] Emergency Department at and asked to speak to the emergency department charge nurse. Sepsis Event Note (ED) - Evaluation Sepsis Screening Result: No Definite Risk - Focused Exam Vital Signs: Vital Signs Temp Pulse Resp BP Pulse Ox 08/18/20 00:15 97 F 96 18 132/78 98 - My Orders Last 24 Hours: My Active Orders 08/18/20 00:19 Sodium Chloride 0.9% [Saline Flush] 10 ml FLUSH ASDIRECTED PRN Sodium Chloride 0.9% [Saline Flush] 2.5 ml FLUSH ASDIRECTED PRN Saline Lock Insert [OM.PC] Stat - Assessment/Plan Last 24 Hours: My Active Orders 08/18/20 00:19 Sodium Chloride 0.9% [Saline Flush] 10 ml FLUSH ASDIRECTED PRN Sodium Chloride 0.9% [Saline Flush] 2.5 ml FLUSH ASDIRECTED PRN Saline Lock Insert [OM.PC] Stat Assessment:: 45-year-old female presented with signs symptoms that are most consistent with anxiety. Chest pain. Low risk for ACS EKG is without findings of acute ischemia. Given tachycardia D-dimer sent given the pain is pleuritic. Pneumothorax pneumonia felt unlikely pericarditis myocarditis considered but also felt unlikely no findings of Covid. Toradol and Ativan for symptoms and will reassess. 0220: Patient's labs are normal D-dimer normal. Patient symptoms have resolved her vital signs of normalized with the Ativan and Toradol. I do think the patient has a significant anxiety component to this. Patient has some nonspecific T wave inversions and flattening anteriorly but these are stable from prior EKGs. Right now the patient's symptoms are resolved given her outpatient follow-up and extensive prior evaluation I think discharge is appropriate. Return precautions discussed and understood.
--- NOTE | 2020-08-18 01:22 | CR ---
For Patients: As a result of the Cures Act, medical imaging exams and procedure reports are released immediately into your electronic medical record. You may view this report before your referring provider. If you have questions, please contact your health care provider. INDICATION: Chest pain. TECHNIQUE: Portable AP image of the chest. COMPARISON: 05/30/2020. FINDINGS: No significant change. Lungs low in volume and clear except for medial right base subsegmental atelectasis or scarring. No pleural effusion. Heart size and pulmonary vasculature within normal limits. No significant bony abnormality. IMPRESSION: Lungs low in volume with subsegmental atelectasis or scarring in the medial right base, as before. Dictated by Trevon Saxena MD @ 08/18/2020 1:21:[address] Trevon Saxena @ Aug 18 2020 1:21AM
[2020-08-18 03:11] VITALS: BP 96/60; PULSE 82
== END 2020-08-18 02:35 | disposition home or self-care (01) ==
LOC: MW.ED 00:15
DX: F41.0 Panic disorder [episodic paroxysmal anxiety] (principal); J44.9 Chronic obstructive pulmonary disease, unspecified; E66.9 Obesity, unspecified; Z68.38 Body mass index [BMI] 38.0-38.9, adult; Z88.5 Allergy status to narcotic agent
CPT/HCPCS: 36415; 71045; 80053; 84484; 85025; 85379; 93005; 96374; 96375; 99285; J1885; J2060

== ENCOUNTER 2020-09-20 19:17 | Emergency (ER) | payer OTHER, BC ==
--- NOTE | 2020-09-20 20:01 | PCM.SN.2 ---
- Free Text/Narrative Note: EKG done at 1927 hrs. shows a sinus rhythm heart rate 79 [place] 157 axis -24. There are T wave inversions in V1 to V3. Compared to 08/18/2020 the T wave inversions were more prominent in V1 and V2 but this is most likely lead placement. Impression no acute injury
[2020-09-20 20:12] LABS: BLOOD UREA NITROGEN,BUN 11 mg/dL (7.0-18.0); CARBON DIOXIDE,CO2 29.2 mmol/L (21.0-32.0); CHLORIDE,CL 103 mmol/L (98-107); GLUCOSE RANDOM 120 mg/dL (74-106); LIPASE 148 U/L (73-393); POTASSIUM,K 3.7 mmol/L (3.5-5.1); SODIUM,NA 139 mmol/L (136-145)
[2020-09-20] MEDS ORDERED: Alum Hydrox/Mag Hydrox/Simeth 15 ML, Lidocaine 2% 5 ML PO ONE ×2 (20:15)
[2020-09-20] MEDS ORDERED: Pantoprazole 80 MG in Sodium Chloride 0.9% 20 ML IVPUSH ONE (20:16)
[2020-09-20] MEDS ORDERED: Iopamidol 755 MG/ML 500 ML Multipack Bottle IVPUSH STA (21:05)
--- NOTE | 2020-09-20 22:12 | EDM.PDOC ---
<Sav Kay - Last Filed: 09/20/20 22:51> ED HPI GENERAL MEDICAL PROBLEM - General Chief Complaint: Chest Pain Stated Complaint: CHEST PAINS, SHORTNESS OF BREATH Time Seen by Provider: 09/20/20 19:48 - Related Data Allergies Allergy/AdvReac Type Severity Reaction Status Date / Time hydrocodone Allergy Nausea Verified 09/20/20 19:28 Home Meds: Home Meds LORazepam [Ativan] 1 mg PO DAILY PRN 09/20/20 [History] hydrOXYzine HCL [hydrOXYzine] 09/20/20 [History] Course - Vital Signs Text/Narrative:: 2250 I picked up this patient from my partner whose shift had ended. The patient is frustrated because she has had 3 visits for similar episodes. She is waiting for the [place] to schedule endoscopy. Plan to refer her for local endoscopy. Departure - Departure Time of Disposition: 22:57 Disposition: Home, Self-Care 01 Condition: Good Clinical Impression: Abdominal pain, Umbilical hernia - Discharge Information Instructions: Umbilical Hernia, Adult, Abdominal Pain, Adult, [id number] Referrals: PCP,None [Primary Care Provider] - Forms: ED Department Discharge Additional Instructions: The only finding on your CT was an umbilical hernia that is not containing any trapped bowel. It is extremely unlikely that this is causing symptoms. Call the surgical clinic and see if he can have your endoscopy done locally and more quickly. Continue pantoprazole, smaller no meals before bedtime, elevate head of bed at night. [facility] - General Surgery [address], [address] [place] [address] The following information is given to patients seen in the emergency department who are being discharged to home. This information is to outline your options for follow-up care. We provide all patients seen in our emergency department with a follow-up referral. The need for follow-up, as well as the timing and circumstances, are variable depending upon the specifics of your emergency department visit. If you don't have a primary care physician on staff, we will provide you with a referral. We always advise you to contact your personal physician following an emergency department visit to inform them of the circumstance of the visit and for follow-up with them and/or the need for any referrals to a consulting specialist. The emergency department will also refer you to a specialist when appropriate. This referral assures that you have the opportunity for follow-up care with a specialist. All of these measure are taken in an effort to provide you with optimal care, which includes your follow-up. Under all circumstances we always encourage you to contact your private physician who remains a resource for coordinating your care. When calling for follow-up care, please make the office aware that this follow-up is from your recent emergency room visit. If for any reason you are refused follow-up, please contact the [facility] Emergency Department at and asked to speak to the emergency department charge nurse. <Radha,Melissa - Last Filed: 09/22/20 10:08> ED HPI GENERAL MEDICAL PROBLEM - General Source of Information: Reports: Patient History Limitations: Reports: No Limitations - History of Present Illness INITIAL COMMENTS - FREE TEXT/NARRATIVE: HISTORY AND PHYSICAL: History of present illness: Patient is a 45-year-old female who presents to the ED today with concern of upper abdominal pain, possible chest pain that occurred just prior to travel to the ED. Patient states that she has been having issues of chest pain since May and has had this extensively evaluated and told "it is not her heart "by the grounds maintenance manager. Patient was told that it could be related to anxiety and was started on Ativan and hydroxyzine. Patient states that she has been taking these and states that this is not helping her symptoms. Patient states she began having this upper abdominal/chest pain and states she took an Ativan just prior to arrival to the emergency room which did not help. Patient states that she had a cardiac MRI and was told that this was completely normal and her vessels are open as well as an echo and additional testing done by cardiology. Patient states that her symptoms feel the exact same that has been going on since May and is not any different in nature than this. Patient has been tested for a pulmonary embolism and states that she was told this is negative. Patient states that she does have an increased sensation of the discomfort if she takes a deep breath but this is also typical of her prior symptoms. Denies any trauma or injury. Patient does state that she gets a sensation of difficulty swallowing at times and is scheduled for an upper and lower endoscopy but has not had this yet. Patient denies any alcohol or substance use. Patient states that she has a history of cholecystectomy and her symptoms do feel similar to when she had to have her gallbladder removed. Patient denies fever, chills, or cough. Denies headache, neck stiff ness, change in vision, syncope, or near syncope. Denies nausea, vomiting, diarrhea, constipation, or dysuria. Has not noted any blood in urine or stool. Patient has been eating and drinking appropriately. Review of systems: As per history of present illness and below otherwise all systems reviewed and negative. Past medical history: As per history of present illness and as reviewed below otherwise noncontributory. Surgical history: As per history of present illness and as reviewed below otherwise noncontributory. Social history: See social history for further information Family history: As per history of present illness and as reviewed below otherwise noncontributory. Physical exam: General: Patient is alert, oriented, and in no acute distress. Patient sitting comfortably on exam table. Vitals stable and reviewed by me. HEENT: Atraumatic, normocephalic, pupils equal and reactive bilaterally, negative for conjunctival pallor or scleral icterus, mucous membranes moist, TMs normal bilaterally, throat clear, neck supple, nontender, trachea midline. No drooling or trismus noted. No meningeal signs. No hot potato voice noted. Lungs: Clear to auscultation, breath sounds equal bilaterally, chest nontender. Heart: S1S2, regular rate and rhythm without overt murmur Abdomen: Soft, nondistended, mild-moderate LUQ and periumbilical tenderness without guarding, negative rebound/elise. Negative for masses or hepatosplenomegaly. Negative for costovertebral tenderness. Pelvis: Stable nontender. Genitourinary: Deferred. Rectal: Deferred. Skin: Intact, warm, dry. No lesions or rashes noted. Extremities: Atraumatic, negative for cords or calf pain. Neurovascular unremarkable. Neuro: Awake, alert, oriented. Cranial nerves II through XII unremarkable. Cerebellum unremarkable. Motor and sensory unremarkable throughout. Exam non focal. Notes: Patient is a 45-year-old female who presents to the ED today secondary to upper abdominal pain/chest pain that is worse with deep inspiration that occurred just prior to arrival to the ED. Patient has had a history of the symptoms over the past several months including cardiac MRI, and echo which were unremarkable. Patient follows with Dr. Pineda in the clinic, cardiology. Upon arrival to the ED, patient is vitally stable and well-appearing on exam. She does have mild to moderate left upper quadrant and periumbilical tenderness on exam without guarding and negative rebound no Elise sign. Patient does have a history of cholecystectomy. Will obtain cardiac evaluation as well as abd/pelvic CT w cont. See Dr. Kay dictation for specific EKG interpretation. Otherwise NSR without STEMI. Mild derangements of CBC unremarkable. Mild derangements of CMP unremarkable. Troponin negative. Lipase within normal limits. hCG negative. Urinalysis clear. Dr. Kay has assumed care of patient following abd/pelvic CT scan, CXR, and reevaluation of patient and will follow remaining diagnostics and disposition for patient. Diagnostics: EKG, CBC, CMP, UA, CXR, lipase, Trop, hcg, Abd/pelvic w cont Therapeutics: GI cocktail, Protonix Prescription: Impression: Upper abdominal pain, unspecified Plan: Definitive disposition and diagnosis as appropriate pending reevaluation and review of above. chest Pain Score (Numeric/FACES): 7 Past Medical History HEENT History: Reports: None Cardiovascular History: Reports: High Cholesterol Respiratory History: Reports: COPD Other Respiratory History: mild COPD, seldom uses inhaler Gastrointestinal History: Reports: Gastritis Other Gastrointestinal History: occasional heartburn Genitourinary History: Reports: None, Urinary Incontinence [employer] History: Reports: Polycystic Ovaries, Other [employer] History: hx toxemia Musculoskeletal History: Reports: None Neurological History: Reports: Migraines Psychiatric History: Reports: Anxiety, Depression Endocrine/Metabolic History: Reports: Obesity/BMI 30+ Hematologic History: Reports: Blood Transfusion(s) Other Hematologic History: blood transfusion after vaginal delivery Immunologic History: Reports: None Oncologic (Cancer) History: Reports: None Dermatologic History: Reports: None - Infectious Disease History Infectious Disease History: Reports: Chicken Pox - Past Surgical History Head Surgeries/Procedures: Reports: None HEENT Surgical History: Reports: None Cardiovascular Surgical History: Reports: None Respiratory Surgical History: Reports: None GI Surgical History: Reports: Cholecystectomy, Other (See Below) Other GI Surgeries/Procedures: tummy tuck Female Surgical History: Reports: Cervical Cryotherapy, Dilitation & Evacuation, Endometrial Ablation Endocrine Surgical History: Reports: None Neurological Surgical History: Reports: None Musculoskeletal Surgical History: Reports: None Oncologic Surgical History: Reports: None Dermatological Surgical History: Reports: Plastic Surgical Reconstruction/Repair Social & Family History - Family History Family Medical History: No Pertinent Family History - Tobacco Use Tobacco Use Status *Q: Never Tobacco User - Caffeine Use Caffeine Use: Reports: Soda - Recreational Drug Use Recreational Drug Use: No ED ROS GENERAL - Review of Systems Review Of Systems: Comprehensive ROS is negative, except as noted in HPI. ED EXAM, GENERAL - Physical Exam Exam: See Below (see dictation) Course - Vital Signs Last Recorded V/S: Last Vital Signs Temp 98.7 F 09/20/20 19:25 Pulse 75 09/20/20 23:16 Resp 17 09/20/20 23:16 BP 105/60 09/20/20 23:16 Pulse Ox 95 09/20/20 23:16 - Orders/Labs/Meds Labs: Laboratory Tests 09/20/20 09/20/20 09/20/20 Range/Units 19:34 19:34 19:34 WBC 8.20 (4.0-11.0) K/uL RBC 4.54 (4.30-5.90) M/uL Hgb 13.1 (12.0-16.0) g/dL Hct 39.7 (36.0-46.0) % MCV 87.4 (80.0-98.0) fL MCH 28.9 (27.0-32.0) pg MCHC 33.0 (31.0-37.0) g/dL RDW Std Deviation 41.4 (28.0-62.0) fl RDW Coeff of Tom 13 (11.0-15.0) % Plt Count 362 (150-400) K/uL MPV 10.00 (7.40-12.00) fL Neut % (Auto) 49.6 (48.0-80.0) % Lymph % (Auto) 41.0 H (16.0-40.0) % Blaine % (Auto) 5.2 (0.0-15.0) % Eos % (Auto) 3.5 (0.0-7.0) % Baso % (Auto) 0.7 (0.0-1.5) % Neut # (Auto) 4.1 (1.4-5.7) K/uL Lymph # (Auto) 3.4 H (0.6-2.4) K/uL Blaine # (Auto) 0.4 (0.0-0.8) K/uL Eos # (Auto) 0.3 (0.0-0.7) K/uL Baso # (Auto) 0.1 (0.0-0.1) K/uL Nucleated RBC % 0.0 /100WBC Nucleated RBCs # 0 K/uL Sodium 139 (136-145) mmol/L Potassium 3.7 (3.5-5.1) mmol/L Chloride 103 (98-107) mmol/L Carbon Dioxide 29.2 (21.0-32.0) mmol/L BUN 11 (7.0-18.0) mg/dL Creatinine 0.9 (0.6-1.0) mg/dL Est Cr Clr Drug Dosing 65.30 mL/min Estimated GFR (MDRD) > 60.0 ml/min Glucose 120 H (74-106) mg/dL Calcium 8.9 (8.5-10.1) mg/dL Total Bilirubin 0.3 (0.2-1.0) mg/dL AST 34 (15-37) IU/L ALT 53 (14-63) IU/L Alkaline Phosphatase 88 (46-116) U/L Troponin I < 0.050 (0.000-0.056) ng/mL Total Protein 7.7 (6.4-8.2) g/dL Albumin 3.2 L (3.4-5.0) g/dL Globulin 4.5 H (2.6-4.0) g/dL Albumin/Globulin Ratio 0.7 L (0.9-1.6) Lipase 148 (73-393) U/L HCG, Qual NEGATIVE (NEG) Urine Color Urine Appearance Urine pH (5.0-8.0) Ur Specific [place] (1.001-1.035) Urine Protein (NEGATIVE) mg/dL Urine Glucose (UA) (NEGATIVE) mg/dL Urine Ketones (NEGATIVE) mg/dL Urine Occult Blood (NEGATIVE) Urine Nitrite (NEGATIVE) Urine Bilirubin (NEGATIVE) Urine Urobilinogen (<2.0) EU/dL Ur Leukocyte Esterase (NEGATIVE) 09/20/20 Range/Units 19:35 WBC (4.0-11.0) K/uL RBC (4.30-5.90) M/uL Hgb (12.0-16.0) g/dL Hct (36.0-46.0) % MCV (80.0-98.0) fL MCH (27.0-32.0) pg MCHC (31.0-37.0) g/dL RDW Std Deviation (28.0-62.0) fl RDW Coeff of Tom (11.0-15.0) % Plt Count (150-400) K/uL MPV (7.40-12.00) fL Neut % (Auto) (48.0-80.0) % Lymph % (Auto) (16.0-40.0) % Blaine % (Auto) (0.0-15.0) % Eos % (Auto) (0.0-7.0) % Baso % (Auto) (0.0-1.5) % Neut # (Auto) (1.4-5.7) K/uL Lymph # (Auto) (0.6-2.4) K/uL Blaine # (Auto) (0.0-0.8) K/uL Eos # (Auto) (0.0-0.7) K/uL Baso # (Auto) (0.0-0.1) K/uL Nucleated RBC % /100WBC Nucleated RBCs # K/uL Sodium (136-145) mmol/L Potassium (3.5-5.1) mmol/L Chloride (98-107) mmol/L Carbon Dioxide (21.0-32.0) mmol/L BUN (7.0-18.0) mg/dL Creatinine (0.6-1.0) mg/dL Est Cr Clr Drug Dosing mL/min Estimated GFR (MDRD) ml/min Glucose (74-106) mg/dL Calcium (8.5-10.1) mg/dL Total Bilirubin (0.2-1.0) mg/dL AST (15-37) IU/L ALT (14-63) IU/L Alkaline Phosphatase (46-116) U/L Troponin I (0.000-0.056) ng/mL Total Protein (6.4-8.2) g/dL Albumin (3.4-5.0) g/dL Globulin (2.6-4.0) g/dL Albumin/Globulin Ratio (0.9-1.6) Lipase (73-393) U/L HCG, Qual (NEG) Urine Color YELLOW Urine Appearance CLEAR Urine pH 5.0 (5.0-8.0) Ur Specific [place] <= 1.005 (1.001-1.035) Urine Protein NEGATIVE (NEGATIVE) mg/dL Urine Glucose (UA) NEGATIVE (NEGATIVE) mg/dL Urine Ketones NEGATIVE (NEGATIVE) mg/dL Urine Occult Blood NEGATIVE (NEGATIVE) Urine Nitrite NEGATIVE (NEGATIVE) Urine Bilirubin NEGATIVE (NEGATIVE) Urine Urobilinogen 0.2 (<2.0) EU/dL Ur Leukocyte Esterase NEGATIVE (NEGATIVE) Meds: Medications Discontinued Medications Generic Name Dose Route Start Last Admin Trade Name Freq PRN Reason Stop Dose Admin Al Hydroxide/Mg Hydroxide 15 0 ml 09/20/20 20:15 09/20/20 20:25 ml/ Lidocaine HCl 5 ml PO 09/20/20 20:16 15 each ONETIME ONE Administration Pantoprazole Sodium 80 mg/ 20 mls @ 420 mls/hr 09/20/20 20:16 09/20/20 20:25 Sodium Chloride IVPUSH 09/20/20 20:18 420 mls/hr ONETIME ONE Administration Iopamidol 100 ml 09/20/20 21:05 09/20/20 21:06 Iopamidol 755 Mg/Ml 500 Ml Multipack Bottle IVPUSH 09/20/20 21:06 100 ml ONETIME STA Administration Sepsis Event Note (ED) - Evaluation Sepsis Screening Result: No Definite Risk
--- NOTE | 2020-09-20 22:32 | CT ---
INDICATION: Periumbilical abdominal pain TECHNIQUE: Axial images were obtained from the diaphragm to the pubic symphysis. Reformats were obtained in the coronal and sagittal plane. IV Contrast: 100 cc Isovue 370 Oral Contrast: None COMPARISON: None. FINDINGS: Lower chest: Right middle lobe discoid atelectasis. Liver: Unremarkable. Normal in size and attenuation. No masses. Gallbladder and bile ducts: Status post cholecystectomy. Spleen: Unremarkable. Normal in size without mass. Pancreas: Unremarkable. No mass or inflammation. Adrenal glands: Unremarkable. No nodules. Kidneys: Unremarkable. No masses, stones, or hydronephrosis. Vasculature: Unremarkable. GI tract: The stomach is unremarkable. No dilated loops of large or small intestine. Appendix unremarkable. Colonic diverticulosis without focal inflammation. Umbilical hernia with loculated fluid at the umbilicus. This measures 2.9 x 1.8 x 1.9 centimeters (series 201, image 101; series 204, image 104). Pelvis: Low-density area within the pelvis measuring 3.4 centimeters between the bladder and the rectosigmoid (series 201, image 142; series 204, image 94). Bones: Unremarkable for age. IMPRESSION: 1. Umbilical hernia with loculated fluid at the umbilicus near the skin surface measuring up to 2.9 centimeters. This can represent a seroma, infected collection not excluded. 2. Low-density identified between the bladder and the rectum. This can represent part of a poorly defined uterus, however if there is a history of prior hysterectomy, this can represent a mildly prominent right ovary. Correlation with prior surgical history. Suggest follow-up outpatient pelvic ultrasound for further characterization. Please note that all CT scans at this facility use dose modulation, iterative reconstruction, and/or weight-based dosing when appropriate to reduce radiation dose to as low as reasonably achievable. Dictated by Azeem Israel MD @ 09/20/2020 10:31:[address] Azeem Israel @ Sep 20 2020 10:31PM
--- NOTE | 2020-09-20 23:19 | CR ---
INDICATION: Chest pain, shortness of breath TECHNIQUE: Chest 1 views COMPARISON: Single AP chest 08/18/2020 FINDINGS: Cardiovascular and mediastinum: Heart size and vasculature are normal in caliber and appearance. Lungs and pleural spaces: Lungs are clear. Stable chronic area opacity in the right base, likely scarring or similar. No sign of infiltrate or mass. No sign of pleural effusion. No pneumothorax. Bones and soft tissues: No significant findings. IMPRESSION: No acute findings and no significant changes from the prior exam. Dictated by Grey Isaac MD @ 09/20/2020 11:16:[address] Grey Isaac @ Sep 20 2020 11:16PM
[2020-09-20 23:23] VITALS: BP 105/60; PULSE 75
== END 2020-09-20 23:18 | disposition home or self-care (01) ==
LOC: MW.ED 19:17
DX: K42.9 Umbilical hernia without obstruction or gangrene (principal); Z88.5 Allergy status to narcotic agent; J44.9 Chronic obstructive pulmonary disease, unspecified; E66.9 Obesity, unspecified; Z68.38 Body mass index [BMI] 38.0-38.9, adult
CPT/HCPCS: 36415; 71045; 74177; 80053; 81003; 83690; 84484; 84703; 85025; 93005; 96374; 99285; A9270; C9113; Q9967

== ENCOUNTER 2021-08-01 21:40 | Emergency (ER) | payer OTHER, BC ==
[2021-08-01] MEDS ORDERED: Aspirin 81 MG Tab.Chew PO ONE (21:47)
[2021-08-01 22:30] LABS: BLOOD UREA NITROGEN,BUN 10 mg/dL (7.0-18.0); CARBON DIOXIDE,CO2 26.1 mmol/L (21.0-32.0); CHLORIDE,CL 98 mmol/L (98-107); GLUCOSE RANDOM 87 mg/dL (74-106); SODIUM,NA 137 mmol/L (136-145)
[2021-08-01] MEDS ORDERED: Magnesium Oxide 400 MG Tab PO ONE (23:44)
[2021-08-01] MEDS ORDERED: Famotidine 20 MG Tab PO ONE (23:44)
[2021-08-01] MEDS ORDERED: Alum Hydro/Mag Hydro/Simeth XS 15 ML, Lidocaine 2% 5 ML PO ONE ×2 (23:44)
[2021-08-02 01:23] VITALS: BP 118/80; PULSE 78
== END 2021-08-02 01:21 | disposition home or self-care (01) ==
LOC: MW.ED 21:40
DX: R20.2 Paresthesia of skin (principal); R10.13 Epigastric pain; R10.12 Left upper quadrant pain; J44.9 Chronic obstructive pulmonary disease, unspecified; E78.00 Pure hypercholesterolemia, unspecified; E66.9 Obesity, unspecified; Z68.28 Body mass index [BMI] 28.0-28.9, adult; Z88.5 Allergy status to narcotic agent; Z79.899 Other long term (current) drug therapy
CPT/HCPCS: 36415; 71045; 80053; 83735; 84484; 85025; 85610; 93005; 99284; A9270; 93010

== ENCOUNTER 2021-08-06 17:17 | Emergency (ER) | payer OTHER, BC ==
[2021-08-06] MEDS ORDERED: LORazepam 1 MG Tab PO ONE (18:33)
[2021-08-06 18:42] LABS: BLOOD UREA NITROGEN,BUN 13 mg/dL (7.0-18.0); CARBON DIOXIDE,CO2 24.4 mmol/L (21.0-32.0); CHLORIDE,CL 100 mmol/L (98-107); GLUCOSE RANDOM 102 mg/dL (74-106); POTASSIUM,K 3.9 mmol/L (3.5-5.1); SODIUM,NA 139 mmol/L (136-145)
[2021-08-06 19:18] VITALS: BP 124/77; PULSE 109
== END 2021-08-06 19:20 | disposition home or self-care (01) ==
LOC: MW.ED 17:17
DX: R07.9 Chest pain, unspecified (principal); R51.9 Headache, unspecified; J44.9 Chronic obstructive pulmonary disease, unspecified; E66.9 Obesity, unspecified; Z68.32 Body mass index [BMI] 32.0-32.9, adult; Z86.16 Personal history of COVID-19; Z90.49 Acquired absence of other specified parts of digestive tract; Z79.899 Other long term (current) drug therapy; Z88.5 Allergy status to narcotic agent
CPT/HCPCS: 36415; 70450; 71045; 80053; 83735; 84443; 84484; 84703; 85025; 85379; 93005; 99285; A9270; 93010; 99284

== ENCOUNTER 2022-06-24 04:44 | Emergency (ER) | payer OTHER, BC ==
[2022-06-24] MEDS ORDERED: Ketorolac 30 MG/ML SDV IVPUSH ONE (05:20)
[2022-06-24] MEDS ORDERED: Lactated Ringers 1,000 ML IV ONE (05:20)
[2022-06-24 05:42] LABS: CARBON DIOXIDE,CO2 27.7 mmol/L (21.0-32.0); POTASSIUM,K 3.8 mmol/L (3.5-5.1)
[2022-06-24] MEDS ORDERED: Iopamidol 755 MG/ML 500 ML Multipack Bottle IVPUSH ONE (05:45)
[2022-06-24] MEDS ORDERED: Alum Hydro/Mag Hydro/Simeth XS 15 ML, Lidocaine 2% 5 ML PO ONE ×2 (05:48)
[2022-06-24] MEDS ORDERED: LORazepam 2 MG/ML SDV IVPUSH ONE (06:02)
[2022-06-24] MEDS ORDERED: Lidocaine 5% 700 MG Patch TRDERM ONE (07:05)
[2022-06-24 09:42] VITALS: BP 111/55; PULSE 61
== END 2022-06-24 09:43 | disposition home or self-care (01) ==
LOC: MW.ED 04:44
DX: R19.00 Intra-abdominal and pelvic swelling, mass and lump, unspecified site (principal); J44.9 Chronic obstructive pulmonary disease, unspecified; E66.9 Obesity, unspecified; Z68.36 Body mass index [BMI] 36.0-36.9, adult; Z88.5 Allergy status to narcotic agent; Z79.899 Other long term (current) drug therapy; Z86.16 Personal history of COVID-19
CPT/HCPCS: 36415; 74177; 76830; 80053; 83690; 85025; 85610; 85730; 96361; 96374; 96375; 99284; A9270; J1885; J2060; J7120; Q9967

== ENCOUNTER 2022-10-11 06:25 | Day surgery (SDC) | payer OTHER, BC ==
[2022-10-11] MEDS ORDERED: Scopolamine 1.5 MG Transdermal Patch TOP ONE (07:05)
[2022-10-11] MEDS ORDERED: Scopolamine 1.5 MG Transdermal Patch ONE (07:09)
[2022-10-11] MEDS ORDERED: Lactated Ringers 1,000 ML IV SCH (07:15)
[2022-10-11] MEDS ORDERED: Morphine 10 MG/ML SDV ONE (07:36)
[2022-10-11] MEDS ORDERED: fentaNYL 100 MCG/2 ML SDV ONE ×3 (07:36→09:05)
[2022-10-11] MEDS ORDERED: Propofol 200 MG/20 ML SDV ONE ×2 (07:36→09:45)
[2022-10-11] MEDS ORDERED: propofoL 50 ML ONE ×2 (07:36→08:50)
[2022-10-11] MEDS ORDERED: Ropivacaine 0.5% 5 MG/ML 30 ML SDV ONE (07:39)
[2022-10-11] MEDS ORDERED: Famotidine 20 MG/2 ML SDV ONE (07:39)
[2022-10-11] MEDS ORDERED: droPERidol 5 MG/2 ML SDV IVPUSH PRN (08:27)
[2022-10-11] MEDS ORDERED: Metoclopramide 10 MG/2 ML SDV IVPUSH PRN (08:27)
[2022-10-11] MEDS ORDERED: HYDROmorphone 1 MG/ML Syringe IVPUSH PRN (08:27)
[2022-10-11] MEDS ORDERED: Naloxone 0.4 MG/ML SDV IVPUSH PRN (08:27)
[2022-10-11] MEDS ORDERED: Morphine 2 MG/ML SYRINGE IVPUSH PRN (08:27)
[2022-10-11] MEDS ORDERED: Albuterol 0.083% 2.5 MG/3 ML Neb Soln NEB PRN (08:27)
[2022-10-11] MEDS ORDERED: Ondansetron 4 MG/2 ML SDV IVPUSH PRN (08:27)
[2022-10-11] MEDS ORDERED: Rocuronium Bromide 50 MG/5 ML Syringe ONE ×2 (08:58→09:05)
[2022-10-11] MEDS ORDERED: Dexamethasone 4 MG/ML 5 ML MDV ONE (08:58)
[2022-10-11] MEDS ORDERED: Lidocaine 2% 11 ML Jelly Filled Syringe ONE (08:58)
[2022-10-11] MEDS ORDERED: Ketorolac 30 MG/ML SDV ONE (08:58)
[2022-10-11] MEDS ORDERED: Ondansetron 4 MG/2 ML SDV ONE (08:58)
[2022-10-11] MEDS ORDERED: Sugammadex Sodium 200 MG/2 ML VIAL ONE (08:58)
[2022-10-11] MEDS ORDERED: Water For Injection, Sterile 40 ML ONE (08:58)
[2022-10-11] MEDS ORDERED: ceFAZolin 2 GM Vial ONE (09:34)
[2022-10-11] MEDS ORDERED: Fluorescein 5 ML Vial ONE (09:39)
[2022-10-11] MEDS ORDERED: Metoclopramide 10 MG/2 ML SDV ONE (10:14)
[2022-10-11] MEDS: fentaNYL 50 MCG/ML SDV IVPUSH PRN ×2 (10:25→11:31)
[2022-10-11 13:01] VITALS: BP 109/55; PULSE 53
== END 2022-10-11 12:30 | disposition home or self-care (01) ==
LOC: MW.SDS 06:25
PROVIDERS: ATTEND Obstetrics & Gynecology
DX: N83.11 Corpus luteum cyst of right ovary (principal); N83.01 Follicular cyst of right ovary; F41.8 Other specified anxiety disorders; K21.9 Gastro-esophageal reflux disease without esophagitis; E78.00 Pure hypercholesterolemia, unspecified; G43.909 Migraine, unspecified, not intractable, without status migrainosus; J44.9 Chronic obstructive pulmonary disease, unspecified; E66.9 Obesity, unspecified; Z88.5 Allergy status to narcotic agent; Z88.8 Allergy status to other drugs, medicaments and biological substances; Z87.891 Personal history of nicotine dependence; Z79.899 Other long term (current) drug therapy; Z68.37 Body mass index [BMI] 37.0-37.9, adult
CPT/HCPCS: 58661; A9270; J0131; J0690; J1100; J1885; J2270; J2405; J2704; J2765; J2795; J3010; J3490; J7030; J7120; 00840; 64488; 88305